=== PATIENT | female | born 1980 | race Caucasian/White ===

== ENCOUNTER 2017-05-17 06:18 | Inpatient (IN) | payer MEDICAID, OTHER ==
[2017-05-17] MEDS ORDERED: Nalbuphine 10 MG/1 ML Vial IVPUSH PRN (06:50)
[2017-05-17] MEDS ORDERED: Methylergonovine 0.2 MG/1 ML Amp IM PRN (06:50)
[2017-05-17] MEDS ORDERED: Lidocaine 1% 50 ML MDV INJECT PRN (06:50)
[2017-05-17] MEDS ORDERED: Terbutaline 1 MG/ML SDV SUBCUT PRN (06:50)
[2017-05-17] MEDS ORDERED: Carboprost Tromethamine 250 MCG/1 ML Amp IM PRN (06:50)
[2017-05-17] MEDS ORDERED: Water For Irrigation,Sterile 1,000 ML Container IRR PRN (06:50)
[2017-05-17] MEDS ORDERED: Misoprostol 200 MCG Tab PO PRN (06:50)
[2017-05-17] MEDS ORDERED: Sodium Chloride 0.9% 10 ML Syringe FLUSH PRN (06:50)
[2017-05-17] MEDS ORDERED: Sodium Chloride 0.9% 2.5 ML Syringe FLUSH PRN (06:50)
[2017-05-17] MEDS ORDERED: Lactated Ringers 1,000 ML IV SCH (07:00)
[2017-05-17] MEDS ORDERED: Oxytocin/0.9 % Sodium Chloride 30 UNIT/500 ML BAG IV SCH ×2 (07:00)
--- NOTE | 2017-05-17 07:58 | PCM.LDHP ---
L&D History of Present Illness - General Date of Service: 05/17/17 Admit Problem/Dx: Patient Status Order with Admit Dx/Problem 05/17/17 06:50 Patient Status [ADT] Routine Admission Diagnosis/Problem Admission Diagnosis/Problem 05/17/17 07:46 36yo EDC 06/01/2017 37 6/7 wks. )+, [place], GBS neg, Hx: Prior C/S due to LGA 8lb 8oz, and 8lb 3oz. current noted for polyhydramnious dx at 35 wks. Source of Information: Patient History Limitations: Reports: No Limitations - History of Present Illness Improves with: Reports: None Worsens with: Reports: None Associated Symptoms: Reports: N - Related Data Allergies/Adverse Reactions: Allergies Allergy/AdvReac Type Severity Reaction Status Date / Time No Known Allergies Allergy Verified 05/17/17 06:55 H&P Review of Systems - Review of Systems: Review Of Systems: See Below General: Reports: No Symptoms HEENT: Reports: No Symptoms Pulmonary: Reports: No Symptoms Cardiovascular: Reports: No Symptoms Gastrointestinal: Reports: No Symptoms Genitourinary: Reports: No Symptoms Musculoskeletal: Reports: No Symptoms Skin: Reports: No Symptoms Psychiatric: Reports: No Symptoms Neurological: Reports: No Symptoms Hematologic/Lymphatic: Reports: No Symptoms Immunologic: Reports: No Symptoms L&D Exam - Exam Exam: See Below - Vital Signs Weight: 63.503 kg - OB Specific Contraction Intensity: Mild Movement: Active Heart Tones: Present Heart Rate (FHR) Variability: Moderate (6-25 bmp) Presentation: Vertex - Clifford Score Clifford Score Cervix Position: Anterior Clifford Score Consistency: Medium Clifford Score Effacement: >80% Clifford Score Dilation: 3-4 cm Clifford Score 's Station: -1 ,0 Clifford Score Total: 10 - Exam General: Alert, Oriented, Cooperative HEENT: Hearing Intact Cardiovascular: Regular Rate, Regular Rhythm, Normal S1, Normal S2 GI/Abdominal Exam: Soft, Non-Tender, No Organomegaly, No Distention, No Abnormal Bruit, No Mass, Pelvis Stable Rectal Exam: Deferred Genitourinary: Cervical fluid Back Exam: Full Range of Motion Extremities: Normal Range of Motion, Non-Tender, No Pedal Edema, Normal Capillary Refill Skin: Warm, Dry, Intact Neurological: Reflexes Equal Bilateral, Normal Speech, Normal Tone Psychiatric: Alert, Normal Affect, Normal Mood - Patient Data Lab Results Last 24 hrs: Laboratory Results - last 24 hr 05/17/17 Range/Units 07:06 WBC 6.53 (4.0-11.0) K/uL RBC 3.86 L (4.30-5.90) M/uL Hgb 10.6 L (12.0-16.0) g/dL Hct 32.3 L (36.0-46.0) % MCV 83.7 (80.0-98.0) fL MCH 27.5 (27.0-32.0) pg MCHC 32.8 (31.0-37.0) g/dL RDW Std Deviation 46.3 (28.0-62.0) fl RDW Coeff of Pamela 15 (11.0-15.0) % Plt Count 319 (150-400) K/uL MPV 9.60 (7.40-12.00) fL Nucleated RBC % 0.0 /100WBC Nucleated RBCs # 0 K/uL Result Diagrams: 05/17/17 07:06 - Problem List (1) Supervision of normal IUP (intrauterine ) in multigravida SNOMED Code(s): 577675802, 712441002 ICD Code: Z34.80 - ENCOUNTER FOR SUPRVSN OF NORMAL , UNSP TRIMESTER Status: Acute Priority: High Current Visit: Yes Qualifiers: Trimester: third trimester Qualified Code(s): Z34.83 - Encounter for supervision of other normal , third trimester (2) History of SNOMED Code(s): 015356082 ICD Code: Z98.891 - HISTORY OF UTERINE SCAR FROM PREVIOUS SURGERY Status: Acute Priority: High Current Visit: Yes (3) SROM (spontaneous rupture of membranes) SNOMED Code(s): 496223629 ICD Code: ZBD0586 - Status: Acute Priority: High Current Visit: Yes (4) Polyhydramnios affecting in third trimester SNOMED Code(s): 203260642 ICD Code: O40.3XX0 - POLYHYDRAMNIOS, THIRD TRIMESTER, NOT APPLICABLE OR UNSP Status: Acute Priority: High Current Visit: Yes Problem List Initiated/Reviewed/Updated: Yes Orders Last 24hrs: Active Orders 24 hr Category Date Time Status Patient Status [ADT] Routine ADT 05/17/17 06:50 Active Bedrest Bathroom Privileges [RC] ASDIRECTED Care 05/17/17 06:50 Active Communication Order [RC] ASDIRECTED Care 05/17/17 06:50 Active Communication Order [RC] ASDIRECTED Care 05/17/17 06:50 Active Communication Order [RC] ASDIRECTED Care 05/17/17 06:50 Active Heart Tones [RC] CONTINUOUS Care 05/17/17 06:50 Active Non Stress Test [RC] PER UNIT ROUTINE Care 05/17/17 06:50 Active May Shower [RC] ASDIRECTED Care 05/17/17 06:50 Active Notify Provider [RC] PRN Care 05/17/17 06:50 Active Notify Provider [RC] PRN Care 05/17/17 06:50 Active Notify Provider [RC] PRN Care 05/17/17 06:50 Active Notify Provider [RC] STAT Care 05/17/17 06:50 Active Oxygen Therapy [RC] ASDIRECTED Care 05/17/17 06:50 Active Up ad [place] [RC] ASDIRECTED Care 05/17/17 06:50 Active Vaginal Exam [RC] PRN Care 05/17/17 06:50 Active Vaginal Exam [RC] PRN Care 05/17/17 06:50 Active Vital Signs [RC] PER UNIT ROUTINE Care 05/17/17 06:50 Active Vital Signs [RC] PER UNIT ROUTINE Care 05/17/17 06:50 Active Regular Diet [DIET] Diet 05/17/17 Breakfast Active TYPE AND SCREEN [BBK] Routine Lab 05/17/17 07:06 Received Carboprost Tromethamine [Hemabate DS] Med 05/17/17 06:50 Active 250 mcg IM ASDIRECTED PRN Lactated Ringers [Ringers, Lactated] 1,000 ml Med 05/17/17 07:00 Active IV ASDIRECTED Lidocaine 1% [Xylocaine 1%] Med 05/17/17 06:50 Active 50 ml INJECT .ONCE PRN Methylergonovine [Methergine] Med 05/17/17 06:50 Active 0.2 mg IM ASDIRECTED PRN Misoprostol [Cytotec] Med 05/17/17 06:50 Active 200 mcg PO .ONCE PRN Nalbuphine [Nubain] Med 05/17/17 06:50 Active 10 mg IVPUSH Q1H PRN Oxytocin/0.9 % Sodium Chloride [Oxytocin 30 Unit/500 ML Med 05/17/17 07:00 Active -NS] 30 unit in 500 ml IV TITRATE Oxytocin/0.9 % Sodium Chloride [Oxytocin 30 Unit/500 ML Med 05/17/17 07:00 Active -NS] 30 unit in 500 ml IV TITRATE Sodium Chloride 0.9% [Saline Flush] Med 05/17/17 06:50 Active 10 ml FLUSH ASDIRECTED PRN Sodium Chloride 0.9% [Saline Flush] Med 05/17/17 06:50 Active 2.5 ml FLUSH ASDIRECTED PRN Terbutaline [Brethine] Med 05/17/17 06:50 Active 0.25 mg SUBCUT ASDIRECTED PRN Water For Irrigation,Sterile [Sterile Water for Med 05/17/17 06:50 Active Irrigation] 1,000 ml IRR ASDIRECTED PRN Scalp Electrode [WOMSER] Per Unit Routine Oth 05/17/17 06:50 Ordered Medication Administration Instruction [OM.PC] Q3H Oth 05/17/17 07:00 Ordered Peripheral IV Insertion Adult [OM.PC] Routine Oth 05/17/17 06:50 Ordered Resuscitation Status Routine Resus Stat 05/17/17 06:50 Ordered Medication Orders Carboprost Tromethamine (Hemabate Ds) 250 mcg IM ASDIRECTED PRN PRN Reason: Post Hemorrhage Lactated Ringer's (Ringers, Lactated) 1,000 mls @ 150 mls/hr IV ASDIRECTED ALINA Oxytocin/Sodium Chloride (Oxytocin 30 Unit/500 Ml-Ns) 30 unit in 500 mls @ 999 mls/hr IV TITRATE ALINA Oxytocin/Sodium Chloride (Oxytocin 30 Unit/500 Ml-Ns) 30 unit in 500 mls @ 2 mls/hr IV TITRATE ALINA; 2 MUNITS/MIN PRN Reason: Protocol Lidocaine HCl (Xylocaine 1%) 50 ml INJECT .ONCE PRN PRN Reason: Laceration repair Methylergonovine Maleate (Methergine) 0.2 mg IM ASDIRECTED PRN PRN Reason: Post Hemorrhage Misoprostol (Cytotec) 200 mcg PO .ONCE PRN PRN Reason: Post Hemorrhage Nalbuphine HCl (Nubain) 10 mg IVPUSH Q1H PRN PRN Reason: Pain (severe 7-10) Sodium Chloride (Saline Flush) 10 ml FLUSH ASDIRECTED PRN PRN Reason: Keep Vein Open Sodium Chloride (Saline Flush) 2.5 ml FLUSH ASDIRECTED PRN PRN Reason: Keep Vein Open Sterile Water (Sterile Water For Irrigation) 1,000 ml IRR ASDIRECTED PRN PRN Reason: delivery Terbutaline Sulfate (Brethine) 0.25 mg SUBCUT ASDIRECTED PRN PRN Reason: Tacysystole Assessment/Plan Comment:: Labor A: 36yo EDC 06/01/2017 37 6/7 wks. )+, [place], GBS neg, Hx: Prior C/S due to LGA 8lb 8oz, and 8lb 3oz. current noted for polyhydramnious dx at 35 wks. P: Admit to L&D, pain mngt prn, anticipate . Dr Ruiz updated on pt status.
--- NOTE | 2017-05-18 00:07 | PCM.PREANE ---
Preanesthetic Assessment - Anesthesia/Transfusion/Family Hx Anesthesia History: Prior Anesthesia Without Reaction - Review of Systems General: No Symptoms Pulmonary: No Symptoms Cardiovascular: No Symptoms Gastrointestinal: No Symptoms Neurological: No Symptoms Other: Reports: None - Physical Assessment Height: 5 ft 6 in Weight: 63.503 kg ASA Class: 2 Mental Status: Alert & Oriented x3 Airway Class: Mallampati = 2 Dentition: Reports: Normal Dentition Thyro-Mental Finger Breadths: 3 Mouth Opening Finger Breadths: 3 ROM/Head Extension: Full Lungs: Clear to Auscultation, Normal Respiratory Effort Cardiovascular: Regular Rate, Regular Rhythm - Lab Values: Laboratory Last Values WBC 6.53 K/uL (4.0-11.0) 05/17/17 07:06 RBC 3.86 M/uL (4.30-5.90) L 05/17/17 07:06 Hgb 10.6 g/dL (12.0-16.0) L 05/17/17 07:06 Hct 32.3 % (36.0-46.0) L 05/17/17 07:06 MCV 83.7 fL (80.0-98.0) 05/17/17 07:06 MCH 27.5 pg (27.0-32.0) 05/17/17 07:06 MCHC 32.8 g/dL (31.0-37.0) 05/17/17 07:06 RDW Std Deviation 46.3 fl (28.0-62.0) 05/17/17 07:06 RDW Coeff of Pamela 15 % (11.0-15.0) 05/17/17 07:06 Plt Count 319 K/uL (150-400) 05/17/17 07:06 MPV 9.60 fL (7.40-12.00) 05/17/17 07:06 Nucleated RBC % 0.0 /100WBC 05/17/17 07:06 Nucleated RBCs # 0 K/uL 05/17/17 07:06 Blood Type O POSITIVE 05/17/17 07:06 Antibody Screen NEGATIVE 05/17/17 07:06 - Allergies Allergies/Adverse Reactions: Allergies Allergy/AdvReac Type Severity Reaction Status Date / Time No Known Allergies Allergy Verified 05/17/17 06:55 - Acknowledgements Anesthesia Type Planned: Epidural Pt an Appropriate Candidate for the Planned Anesthesia: Yes Alternatives and Risks of Anesthesia Discussed w Pt/Guardian: Yes Pt/Guardian Understands and Agrees with Anesthesia Plan: Yes PreAnesthesia Questionnaire HEENT History: Reports: None Cardiovascular History: Reports: None Respiratory History: Reports: None Gastrointestinal History: Reports: GERD Genitourinary History: Reports: None [employer] History: Reports: , Other (See Below) : 3 Para: 2 LMP (Approximate): Musculoskeletal History: Reports: None Neurological History: Reports: None Psychiatric History: Reports: None Endocrine/Metabolic History: Reports: None Hematologic History: Reports: None Immunologic History: Reports: None Oncologic (Cancer) History: Reports: None Dermatologic History: Reports: None - Infectious Disease History Infectious Disease History: Reports: Herpes - CURRENT (IN HOUSE) MEDS Current Meds: Current Medications Carboprost Tromethamine (Hemabate Ds) 250 mcg IM ASDIRECTED PRN PRN Reason: Post Hemorrhage Lactated Ringer's (Ringers, Lactated) 1,000 mls @ 150 mls/hr IV ASDIRECTED ALINA Last Admin: 05/17/17 18:19 Dose: 150 mls/hr Oxytocin/Sodium Chloride (Oxytocin 30 Unit/500 Ml-Ns) 30 unit in 500 mls @ 999 mls/hr IV TITRATE ALINA Oxytocin/Sodium Chloride (Oxytocin 30 Unit/500 Ml-Ns) 30 unit in 500 mls @ 2 mls/hr IV TITRATE ALINA; 2 MUNITS/MIN PRN Reason: Protocol Last Admin: 05/17/17 18:39 Dose: 2 munits/min, 2 mls/hr Lidocaine HCl (Xylocaine 1%) 50 ml INJECT .ONCE PRN PRN Reason: Laceration repair Methylergonovine Maleate (Methergine) 0.2 mg IM ASDIRECTED PRN PRN Reason: Post Hemorrhage Misoprostol (Cytotec) 200 mcg PO .ONCE PRN PRN Reason: Post Hemorrhage Nalbuphine HCl (Nubain) 10 mg IVPUSH Q1H PRN PRN Reason: Pain (severe 7-10) Last Admin: 05/17/17 23:37 Dose: 10 mg Sodium Chloride (Saline Flush) 10 ml FLUSH ASDIRECTED PRN PRN Reason: Keep Vein Open Sodium Chloride (Saline Flush) 2.5 ml FLUSH ASDIRECTED PRN PRN Reason: Keep Vein Open Sterile Water (Sterile Water For Irrigation) 1,000 ml IRR ASDIRECTED PRN PRN Reason: delivery Terbutaline Sulfate (Brethine) 0.25 mg SUBCUT ASDIRECTED PRN PRN Reason: Tacysystole
[2017-05-18] MEDS ORDERED: fentaNYL/Ropivacaine/Ns/PF 100 ML Bag IV ONE (00:11)
[2017-05-18] MEDS ORDERED: fentaNYL 100 MCG/2 ML SDV ONE (00:23)
--- NOTE | 2017-05-18 01:31 | PCM.DEL ---
L & D Note - General Info Date of Service: 05/18/17 Mother's Due Date: 06/01/17 - Delivery Note Labor: Spontaneous, Augmented by Oxytocin Delivery Outcome: Livebirth Infant Delivery Method: Spontaneous Vaginal Delivery-Single Infant Delivery Mode: Spontaneous Presentation: Vertex Nuchal Cord: None Anesthesia Type: Spinal Amniotic Fluid Description: Clear Episiotomy Type: None Laceration: None Placenta: Intact, Spontaneous Cord: 3 Vessels Estimated Blood Loss: 200 Resuscitation Needed: No Score 1 min: 9 Score 5 min: 9 Second Stage Interventions: Reports: Pushing Effectively, Pushing, Pulls Own Legs Back Delivery Comments (Free Text/Narrative):: Called for delivery prior to pt receiving a spinal block for pain. Arrived and than began pushing. of viable female over intact perineum. Head delivered and then shoulders and body followed easily. place on mothers abdomen with RN at for evaluation. Spont cry. Pitocin to IVF. Delayed cord clamping. Infant pink. Cord clamped and cut by FOB. Cord blood collected. Inspection noted intact perineum. Bimanual normal. EBL 200cc, APGARS 9/9/ Wt: 8lb 5oz. Mother and baby left in stable condition bonding well. Induction Criteria - Augmentation Estimated Pelvis: Reports: Adequate Weight Estimated:: Reports: AGA Reassuring Monitoring Strip: Yes Absence of Tachy Systole: Yes - General Info Date of Service: 05/18/17 Admission Dx/Problem (Free Text): Patient Status Order with Admit Dx/Problem 05/17/17 06:50 Patient Status [ADT] Routine Admission Diagnosis/Problem Admission Diagnosis/Problem 05/17/17 07:46 36yo EDC 06/01/2017 37 6/7 wks. )+, RI, GBS neg, Hx: Prior C/S due to LGA 8lb 8oz, and 8lb 3oz. current noted for polyhydramnious dx at 35 wks. Functional Status: Reports: Pain Controlled - Review of Systems General: Reports: No Symptoms HEENT: Reports: No Symptoms Pulmonary: Reports: No Symptoms Cardiovascular: Reports: No Symptoms Gastrointestinal: Reports: No Symptoms Genitourinary: Reports: No Symptoms Musculoskeletal: Reports: No Symptoms Skin: Reports: No Symptoms Neurological: Reports: No Symptoms Psychiatric: Reports: No Symptoms - Patient Data Weight - Most Recent: 63.503 kg Lab Results Last 24 Hours: Laboratory Results - last 24 hr 05/17/17 05/17/17 Range/Units 07:06 07:06 WBC 6.53 (4.0-11.0) K/uL RBC 3.86 L (4.30-5.90) M/uL Hgb 10.6 L (12.0-16.0) g/dL Hct 32.3 L (36.0-46.0) % MCV 83.7 (80.0-98.0) fL MCH 27.5 (27.0-32.0) pg MCHC 32.8 (31.0-37.0) g/dL RDW Std Deviation 46.3 (28.0-62.0) fl RDW Coeff of Pamela 15 (11.0-15.0) % Plt Count 319 (150-400) K/uL MPV 9.60 (7.40-12.00) fL Nucleated RBC % 0.0 /100WBC Nucleated RBCs # 0 K/uL Blood Type O POSITIVE Antibody Screen NEGATIVE Med Orders - Current: Current Medications Carboprost Tromethamine (Hemabate Ds) 250 mcg IM ASDIRECTED PRN PRN Reason: Post Hemorrhage Lactated Ringer's (Ringers, Lactated) 1,000 mls @ 150 mls/hr IV ASDIRECTED ALINA Last Admin: 05/17/17 18:19 Dose: 150 mls/hr Oxytocin/Sodium Chloride (Oxytocin 30 Unit/500 Ml-Ns) 30 unit in 500 mls @ 999 mls/hr IV TITRATE ALINA Oxytocin/Sodium Chloride (Oxytocin 30 Unit/500 Ml-Ns) 30 unit in 500 mls @ 2 mls/hr IV TITRATE ALINA; 2 MUNITS/MIN PRN Reason: Protocol Last Admin: 05/17/17 18:39 Dose: 2 munits/min, 2 mls/hr Lidocaine HCl (Xylocaine 1%) 50 ml INJECT .ONCE PRN PRN Reason: Laceration repair Methylergonovine Maleate (Methergine) 0.2 mg IM ASDIRECTED PRN PRN Reason: Post Hemorrhage Misoprostol (Cytotec) 200 mcg PO .ONCE PRN PRN Reason: Post Hemorrhage Nalbuphine HCl (Nubain) 10 mg IVPUSH Q1H PRN PRN Reason: Pain (severe 7-10) Last Admin: 05/17/17 23:37 Dose: 10 mg Sodium Chloride (Saline Flush) 10 ml FLUSH ASDIRECTED PRN PRN Reason: Keep Vein Open Sodium Chloride (Saline Flush) 2.5 ml FLUSH ASDIRECTED PRN PRN Reason: Keep Vein Open Sterile Water (Sterile Water For Irrigation) 1,000 ml IRR ASDIRECTED PRN PRN Reason: delivery Terbutaline Sulfate (Brethine) 0.25 mg SUBCUT ASDIRECTED PRN PRN Reason: Tacysystole Discontinued Medications Fentanyl (Sublimaze) Confirm Administered Dose 100 mcg .ROUTE .STK-MED ONE Stop: 05/18/17 00:24 - Exam General: Alert, Oriented Lungs: Normal Respiratory Effort GI/Abdominal Exam: Soft, Non-Tender (Female) Exam: Normal External Exam, Normal Bimanual Exam, Vaginal Bleeding Back Exam: Full Range of Motion Extremities: Normal Range of Motion, Non-Tender, No Pedal Edema, Normal Capillary Refill Skin: Warm, Dry, Intact Wound/Incisions: Healing Well Neurological: No New Focal Deficit, Normal Speech, Normal Tone Psy/Mental Status: Alert, Normal Affect, Normal Mood - Problem List & Annotations (1) Supervision of normal IUP (intrauterine ) in multigravida SNOMED Code(s): 989497731, 850442192 Code(s): Z34.80 - ENCOUNTER FOR SUPRVSN OF NORMAL , UNSP TRIMESTER Status: Acute Priority: High Current Visit: Yes Qualifiers: Trimester: third trimester Qualified Code(s): Z34.83 - Encounter for supervision of other normal , third trimester (2) SROM (spontaneous rupture of membranes) SNOMED Code(s): 622449058 Code(s): BPG4229 - Status: Acute Priority: High Current Visit: Yes (3) Polyhydramnios affecting in third trimester SNOMED Code(s): 569613904 Code(s): O40.3XX0 - POLYHYDRAMNIOS, THIRD TRIMESTER, NOT APPLICABLE OR UNSP Status: Acute Priority: High Current Visit: Yes (4) (normal spontaneous vaginal delivery) SNOMED Code(s): 01512741 Code(s): O80 - ENCOUNTER FOR FULL-TERM UNCOMPLICATED DELIVERY Status: Acute Priority: High Current Visit: Yes - Problem List Review Problem List Initiated/Reviewed/Updated: Yes - My Orders Last 24 Hours: My Active Orders 05/17/17 06:50 Patient Status [ADT] Routine Bedrest Bathroom Privileges [RC] ASDIRECTED Communication Order [RC] ASDIRECTED Communication Order [RC] ASDIRECTED Communication Order [RC] ASDIRECTED Heart Tones [RC] CONTINUOUS Non Stress Test [RC] PER UNIT ROUTINE May Shower [RC] ASDIRECTED Notify Provider [RC] PRN Notify Provider [RC] PRN Notify Provider [RC] PRN Notify Provider [RC] STAT Oxygen Therapy [RC] ASDIRECTED Up ad [place] [RC] ASDIRECTED Vaginal Exam [RC] PRN Vaginal Exam [RC] PRN Vital Signs [RC] PER UNIT ROUTINE Vital Signs [RC] PER UNIT ROUTINE Carboprost Tromethamine [Hemabate DS] 250 mcg IM ASDIRECTED PRN Lidocaine 1% [Xylocaine 1%] 50 ml INJECT .ONCE PRN Methylergonovine [Methergine] 0.2 mg IM ASDIRECTED PRN Misoprostol [Cytotec] 200 mcg PO .ONCE PRN Nalbuphine [Nubain] 10 mg IVPUSH Q1H PRN Sodium Chloride 0.9% [Saline Flush] 10 ml FLUSH ASDIRECTED PRN Sodium Chloride 0.9% [Saline Flush] 2.5 ml FLUSH ASDIRECTED PRN Terbutaline [Brethine] 0.25 mg SUBCUT ASDIRECTED PRN Water For Irrigation,Sterile [Sterile Water for Irrigation] 1,000 ml IRR ASDIRECTED PRN Scalp Electrode [WOMSER] Per Unit Routine Peripheral IV Insertion Adult [OM.PC] Routine Resuscitation Status Routine 05/17/17 07:00 Lactated Ringers [Ringers, Lactated] 1,000 ml IV ASDIRECTED Oxytocin/0.9 % Sodium Chloride [Oxytocin 30 Unit/500 ML-NS] 30 unit in 500 ml IV TITRATE Oxytocin/0.9 % Sodium Chloride [Oxytocin 30 Unit/500 ML-NS] 30 unit in 500 ml IV TITRATE Medication Administration Instruction [OM.PC] Q3H 05/17/17 Breakfast Regular Diet [DIET] 05/17/17 Lunch Regular Diet [DIET] - Plan Plan:: Labor A: 36yo EDC 06/01/2017 37 6/7 wks. )+, [place], GBS neg, Hx: Prior C/S due to LGA 8lb 8oz, and 8lb 3oz. current noted for polyhydramnious dx at 35 wks. P: Admit to L&D, pain mngt prn, anticipate . Dr Ruiz updated on pt status. Delivered A: of viable female. APGARS 9/9, Wt: 8lb 5oz, pink and stable. Intact perineum, EBL 200cc, stable condition bonding well with infant. P: Routine pp plan of care.
[2017-05-18] MEDS ORDERED: Bisacodyl 10 MG Supp RECTAL PRN (01:36)
[2017-05-18] MEDS ORDERED: oxyCODONE 5 MG Tab PO PRN (01:36)
[2017-05-18] MEDS ORDERED: Ibuprofen 400 MG Tab PO PRN (01:36)
[2017-05-18] MEDS ORDERED: Witch Hazel Medicated Pads 40/Jar TOP PRN (01:36)
[2017-05-18] MEDS ORDERED: Docusate Sodium 100 MG Cap PO PRN (01:36)
[2017-05-18] MEDS ORDERED: Acetaminophen 500 MG Tab PO PRN ×2 (01:36)
[2017-05-18] MEDS ORDERED: Benzocaine/Menthol 20%-0.5% Spray 78 GM Cannister TOP PRN (01:36)
[2017-05-18] MEDS ORDERED: Lanolin 100% Cream 7 GM Tube TOP PRN (01:36)
--- NOTE | 2017-05-18 07:24 | PCM48HPAN ---
Post Anesthesia Note - EVALUATION WITHIN 48HRS OF ANESTHETIC Vital Signs in Normal Range: Yes Patient Participated in Evaluation: Yes Respiratory Function Stable: Yes Airway Patent: Yes Cardiovascular Function Stable: Yes Hydration Status Stable: Yes Pain Control Satisfactory: Yes Nausea and Vomiting Control Satisfactory: Yes Mental Status Recovered: Yes
--- NOTE | 2017-05-18 07:55 | PCM.PNPP ---
- General Info Date of Service: 05/18/17 Admission Dx/Problem (Free Text): Patient Status Order with Admit Dx/Problem 05/17/17 06:50 Patient Status [ADT] Routine Admission Diagnosis/Problem Admission Diagnosis/Problem 05/17/17 07:46 36yo EDC 06/01/2017 37 6/7 wks. )+, RI, GBS neg, Hx: Prior C/S due to LGA 8lb 8oz, and 8lb 3oz. current noted for polyhydramnious dx at 35 wks. Functional Status: Reports: Pain Controlled, Tolerating Diet, Ambulating, Urinating - Review of Systems General: Reports: No Symptoms HEENT: Reports: No Symptoms Pulmonary: Reports: No Symptoms Cardiovascular: Reports: No Symptoms Gastrointestinal: Reports: No Symptoms Genitourinary: Reports: No Symptoms Musculoskeletal: Reports: No Symptoms Skin: Reports: No Symptoms Neurological: Reports: No Symptoms Psychiatric: Reports: No Symptoms - General Info Date of Service: 05/18/17 - Patient Data Weight - Most Recent: 63.503 kg Lab Results - Last 24 Hours: Laboratory Results - last 24 hr 05/17/17 Range/Units 07:06 Blood Type O POSITIVE Antibody Screen NEGATIVE Med Orders - Current: Current Medications Acetaminophen (Tylenol Extra Strength) 500 mg PO Q4H PRN PRN Reason: Pain Acetaminophen (Tylenol Extra Strength) 1,000 mg PO Q4H PRN PRN Reason: Pain Benzocaine/Menthol (Dermoplast Pain Relief 20%-0.5% [place]) 78 gm TOP ASDIRECTED PRN PRN Reason: Perineal Comfort Measure Bisacodyl (Dulcolax) 10 mg RECTAL .ONCE PRN PRN Reason: Constipation Docusate Sodium (Colace) 100 mg PO BID PRN PRN Reason: Constipation Emollient Ointment (Lansinoh Hpa) 0 gm TOP ASDIRECTED PRN PRN Reason: Sore Nipples Ibuprofen (Motrin) 400 mg PO Q4H PRN PRN Reason: Pain Ibuprofen (Motrin) 800 mg PO Q6H PRN PRN Reason: Pain Oxycodone HCl (Oxycodone) 5 mg PO Q2H PRN PRN Reason: Pain Witch Corinna (Tucks) 1 pad TOP ASDIRECTED PRN PRN Reason: comfort care Discontinued Medications Carboprost Tromethamine (Hemabate Ds) 250 mcg IM ASDIRECTED PRN PRN Reason: Post Hemorrhage Fentanyl (Sublimaze) Confirm Administered Dose 100 mcg .ROUTE .K-MED ONE Stop: 05/18/17 00:24 Lactated Ringer's (Ringers, Lactated) 1,000 mls @ 150 mls/hr IV ASDIRECTED ALINA Last Admin: 05/17/17 18:19 Dose: 150 mls/hr Oxytocin/Sodium Chloride (Oxytocin 30 Unit/500 Ml-Ns) 30 unit in 500 mls @ 999 mls/hr IV TITRATE ALINA Oxytocin/Sodium Chloride (Oxytocin 30 Unit/500 Ml-Ns) 30 unit in 500 mls @ 2 mls/hr IV TITRATE ALINA; 2 MUNITS/MIN PRN Reason: Protocol Last Titration: 05/18/17 01:36 Dose: Infused Lidocaine HCl (Xylocaine 1%) 50 ml INJECT .ONCE PRN PRN Reason: Laceration repair Methylergonovine Maleate (Methergine) 0.2 mg IM ASDIRECTED PRN PRN Reason: Post Hemorrhage Misoprostol (Cytotec) 200 mcg PO .ONCE PRN PRN Reason: Post Hemorrhage Nalbuphine HCl (Nubain) 10 mg IVPUSH Q1H PRN PRN Reason: Pain (severe 7-10) Last Admin: 05/17/17 23:37 Dose: 10 mg Sodium Chloride (Saline Flush) 10 ml FLUSH ASDIRECTED PRN PRN Reason: Keep Vein Open Sodium Chloride (Saline Flush) 2.5 ml FLUSH ASDIRECTED PRN PRN Reason: Keep Vein Open Sterile Water (Sterile Water For Irrigation) 1,000 ml IRR ASDIRECTED PRN PRN Reason: delivery Terbutaline Sulfate (Brethine) 0.25 mg SUBCUT ASDIRECTED PRN PRN Reason: Tacysystole - Infant Interaction Disposition, : in Room with Family Interaction: Holding Infant Feeding: Breastfed Infant; Nursed Well Support Person: - Recovery Exam Fundal Tone: Firm Fundal Level: At Umbilicus Fundal Placement: Midline Lochia Amount: Small Lochia Color: Rubra/Red Perineum Description: Intact, Minimal Bruising/Swelling Bladder Status: Voiding Urinary Elimination: Voided - Exam General: Alert, Oriented, Cooperative, No Acute Distress Lungs: Normal Respiratory Effort GI/Abdominal Exam: Soft, Non-Tender Extremities: Normal Range of Motion, Non-Tender, No Pedal Edema, Normal Capillary Refill Skin: Warm, Dry, Intact Neurological: No New Focal Deficit, Normal Speech, Normal Tone Psy/Mental Status: Alert, Normal Affect, Normal Mood - Problem List & Annotations (1) Supervision of normal IUP (intrauterine ) in multigravida SNOMED Code(s): 666803303, 507732293 Code(s): Z34.80 - ENCOUNTER FOR SUPRVSN OF NORMAL , UNSP TRIMESTER Status: Acute Priority: High Current Visit: Yes Qualifiers: Trimester: third trimester Qualified Code(s): Z34.83 - Encounter for supervision of other normal , third trimester (2) SROM (spontaneous rupture of membranes) SNOMED Code(s): 805563513 Code(s): HNK2874 - Status: Acute Priority: High Current Visit: Yes (3) Polyhydramnios affecting in third trimester SNOMED Code(s): 944189520 Code(s): O40.3XX0 - POLYHYDRAMNIOS, THIRD TRIMESTER, NOT APPLICABLE OR UNSP Status: Acute Priority: High Current Visit: Yes (4) (normal spontaneous vaginal delivery) SNOMED Code(s): 53794117 Code(s): O80 - ENCOUNTER FOR FULL-TERM UNCOMPLICATED DELIVERY Status: Acute Priority: High Current Visit: Yes - Problem List Review Problem List Initiated/Reviewed/Updated: Yes - My Orders Last 24 Hours: My Active Orders 05/18/17 01:36 May Shower [RC] ASDIRECTED Up ad [place] [RC] ASDIRECTED Vital Signs [RC] PER UNIT ROUTINE Acetaminophen [Tylenol Extra Strength] 1,000 mg PO Q4H PRN Acetaminophen [Tylenol Extra Strength] 500 mg PO Q4H PRN Benzocaine/Menthol [Dermoplast Pain Relief 20%-0.5% [place]] 78 gm TOP ASDIRECTED PRN Bisacodyl [Dulcolax] 10 mg RECTAL .ONCE PRN Docusate Sodium [Colace] 100 mg PO BID PRN Ibuprofen [Motrin] 400 mg PO Q4H PRN Ibuprofen [Motrin] 800 mg PO Q6H PRN Lanolin [Lansinoh HPA] See Dose Instructions TOP ASDIRECTED PRN Witch Corinna [Tucks] 1 pad TOP ASDIRECTED PRN oxyCODONE 5 mg PO Q2H PRN Assess Lochia [WOMSER] Per Unit Routine Assess Uterine Involution [WOMSER] Per Unit Routine Peripheral IV Discontinue [OM.PC] Routine Resuscitation Status Routine 05/18/17 01:37 Patient Status [ADT] Routine 05/18/17 Breakfast Regular Diet [DIET] - Plan Plan:: Labor A: 36yo EDC 06/01/2017 37 6/7 wks. )+, RI, GBS neg, Hx: Prior C/S due to LGA 8lb 8oz, and 8lb 3oz. current noted for polyhydramnious dx at 35 wks. P: Admit to L&D, pain mngt prn, anticipate . Dr Ruiz updated on pt status. Delivered A: of viable female. APGARS 9/9, Wt: 8lb 5oz, pink and stable. Intact perineum, EBL 200cc, stable condition bonding well with . P: Routine pp plan of care. PP day 0 A: VSS, AF, urinating and walking without assistance. Lochia small. Denies pain. Breast feeding. Stabld P: continue pp plan of care
[2017-05-18] MEDS: Ibuprofen 800 MG Tab PO PRN (17:11)
[2017-05-19] MEDS: Ibuprofen 800 MG Tab PO PRN ×2 (03:50→11:10)
--- NOTE | 2017-05-19 05:40 | PCM.DCSUM1 ---
Discharge Summary - Hospital Course Free Text/Narrative:: Discharge home with . Follow up 6 weeks or sooner if needed. - Discharge Data Discharge Date: 05/19/17 Discharge Disposition: Home, Self-Care 01 Condition: Good - Discharge Diagnosis/Problem(s) (1) Supervision of normal IUP (intrauterine ) in multigravida SNOMED Code(s): 451755734, 867579518 ICD Code: Z34.80 - ENCOUNTER FOR SUPRVSN OF NORMAL , UNSP TRIMESTER Status: Acute Priority: High Current Visit: Yes Qualifiers: Trimester: third trimester Qualified Code(s): Z34.83 - Encounter for supervision of other normal , third trimester (2) SROM (spontaneous rupture of membranes) SNOMED Code(s): 603401209 ICD Code: [id number] - Status: Acute Priority: High Current Visit: Yes (3) Polyhydramnios affecting in third trimester SNOMED Code(s): 450663579 ICD Code: O40.3XX0 - POLYHYDRAMNIOS, THIRD TRIMESTER, NOT APPLICABLE OR UNSP Status: Acute Priority: High Current Visit: Yes (4) (normal spontaneous vaginal delivery) SNOMED Code(s): 71765742 ICD Code: O80 - ENCOUNTER FOR FULL-TERM UNCOMPLICATED DELIVERY Status: Acute Priority: High Current Visit: Yes - Patient Instructions Diet: Usual Diet as Tolerated Activity: As Tolerated, No Strenuous Activities, Rest and Relax Today Driving: May Drive Today Showering/Bathing: May Shower Notify Provider of: Fever, Increased Pain, Swelling and Redness, Nausea and/or Vomiting Other/Special Instructions: Discharge home with . Follow up 6 weeks or sooner if needed. - Discharge Plan Referrals: [facility] [Outside] Janay Mena CNM [Mid-] - 06/28/17 1:30 pm - General Info Date of Service: 05/19/17 Admission Dx/Problem (Free Text: Patient Status Order with Admit Dx/Problem 05/17/17 06:50 Patient Status [ADT] Routine Admission Diagnosis/Problem Admission Diagnosis/Problem 05/17/17 07:46 36yo EDC 06/01/2017 37 6/7 wks. )+, RI, GBS neg, Hx: Prior C/S due to LGA 8lb 8oz, and 8lb 3oz. current noted for polyhydramnious dx at 35 wks. Functional Status: Reports: Pain Controlled, Tolerating Diet, Ambulating, Urinating - Review of Systems General: Reports: No Symptoms HEENT: Reports: No Symptoms Pulmonary: Reports: No Symptoms Cardiovascular: Reports: No Symptoms Gastrointestinal: Reports: No Symptoms Genitourinary: Reports: No Symptoms Musculoskeletal: Reports: No Symptoms Skin: Reports: No Symptoms Neurological: Reports: No Symptoms Psychiatric: Reports: No Symptoms - Patient Data Vitals - Most Recent: Last Vital Signs Temp 36.9 C 05/19/17 04:00 Pulse 75 05/19/17 04:00 Resp 18 05/19/17 04:00 BP 122/75 05/19/17 04:00 Pulse Ox 99 05/19/17 04:00 Weight - Most Recent: 63.503 kg Med Orders - Current: Current Medications Acetaminophen (Tylenol Extra Strength) 500 mg PO Q4H PRN PRN Reason: Pain Acetaminophen (Tylenol Extra Strength) 1,000 mg PO Q4H PRN PRN Reason: Pain Benzocaine/Menthol (Dermoplast Pain Relief 20%-0.5% [place]) 78 gm TOP ASDIRECTED PRN PRN Reason: Perineal Comfort Measure Bisacodyl (Dulcolax) 10 mg RECTAL .ONCE PRN PRN Reason: Constipation Docusate Sodium (Colace) 100 mg PO BID PRN PRN Reason: Constipation Last Admin: 05/19/17 03:51 Dose: 100 mg Emollient Ointment (Lansinoh Hpa) 0 gm TOP ASDIRECTED PRN PRN Reason: Sore Nipples Ibuprofen (Motrin) 400 mg PO Q4H PRN PRN Reason: Pain Ibuprofen (Motrin) 800 mg PO Q6H PRN PRN Reason: Pain Last Admin: 05/19/17 03:50 Dose: 800 mg Oxycodone HCl (Oxycodone) 5 mg PO Q2H PRN PRN Reason: Pain Witch [place] (Tucks) 1 pad TOP ASDIRECTED PRN PRN Reason: comfort care Discontinued Medications Carboprost Tromethamine (Hemabate Ds) 250 mcg IM ASDIRECTED PRN PRN Reason: Post Hemorrhage Fentanyl (Sublimaze) Confirm Administered Dose 100 mcg .ROUTE .STK-MED ONE Stop: 02/13/18 00:24 Last Admin: 05/18/17 21:45 Dose: Not Given Lactated Ringer's (Ringers, Lactated) 1,000 mls @ 150 mls/hr IV ASDIRECTED ALINA Last Admin: 05/17/17 18:19 Dose: 150 mls/hr Oxytocin/Sodium Chloride (Oxytocin 30 Unit/500 Ml-Ns) 30 unit in 500 mls @ 999 mls/hr IV TITRATE ALINA Oxytocin/Sodium Chloride (Oxytocin 30 Unit/500 Ml-Ns) 30 unit in 500 mls @ 2 mls/hr IV TITRATE ALINA; 2 MUNITS/MIN PRN Reason: Protocol Last Titration: 05/18/17 01:36 Dose: Infused Lidocaine HCl (Xylocaine 1%) 50 ml INJECT .ONCE PRN PRN Reason: Laceration repair Methylergonovine Maleate (Methergine) 0.2 mg IM ASDIRECTED PRN PRN Reason: Post Hemorrhage Misoprostol (Cytotec) 200 mcg PO .ONCE PRN PRN Reason: Post Hemorrhage Nalbuphine HCl (Nubain) 10 mg IVPUSH Q1H PRN PRN Reason: Pain (severe 7-10) Last Admin: 05/17/17 23:37 Dose: 10 mg Ropivacaine/Fentanyl/NS (Fentanyl 2 Mcg-Ropiv 0.2%-Ns) 0 ml IV .Oravel ONE Stop: 05/18/17 00:12 Sodium Chloride (Saline Flush) 10 ml FLUSH ASDIRECTED PRN PRN Reason: Keep Vein Open Sodium Chloride (Saline Flush) 2.5 ml FLUSH ASDIRECTED PRN PRN Reason: Keep Vein Open Sterile Water (Sterile Water For Irrigation) 1,000 ml IRR ASDIRECTED PRN PRN Reason: delivery Terbutaline Sulfate (Brethine) 0.25 mg SUBCUT ASDIRECTED PRN PRN Reason: Tacysystole - Exam General: Reports: Alert, Oriented, Cooperative, No Acute Distress Lungs: Reports: Clear to Auscultation, Normal Respiratory Effort Cardiovascular: Reports: Regular Rate, Regular Rhythm, No Murmurs GI/Abdominal Exam: Soft, Non-Tender, No Distention (Female) Exam: Vaginal Bleeding Rectal (Female) Exam: Deferred Back Exam: Reports: Full Range of Motion Extremities: Normal Range of Motion, Non-Tender, No Pedal Edema, Normal Capillary Refill Skin: Reports: Warm, Dry, Intact Wound/Incisions: Reports: Healing Well Neurological: Reports: No New Focal Deficit, Normal Speech, Normal Tone Psy/Mental Status: Reports: Alert, Normal Affect, Normal Mood *Q Meaningful Use (DIS) - VTE *Q VTE Criteria *Q: - Stroke *Q Stroke Criteria *Q: - AMI *Q AMI Criteria *Q:
== END 2017-05-19 12:15 | disposition home or self-care (01) | DRG 775 ==
LOC: MW.OBCHECK 06:18 → MW.OB 06:22 → MW.OBCHECK 06:50 → OBSVTOIN 05-18 01:06
PROVIDERS: ADMIT Obstetrics & Gynecology; ATTEND Obstetrics & Gynecology
PROC: 10E0XZZ Delivery of Products of Conception, External Approach (ICD-10-PCS; principal; 2017-05-18)
DX: O40.3XX0 Polyhydramnios, third trimester, not applicable or unspecified (principal); Z3A.37 37 weeks gestation of pregnancy; Z37.0 Single live birth
CPT/HCPCS: 36415; 59025; 59409; 85027; 86850; 86900; 86901; A9270-GY; J2300; J2590; J3010; J7120